=== PATIENT | female | born 1975 | race Caucasian/White ===

== ENCOUNTER 2024-03-02 16:14 | Outpatient (CLI) | payer BC ==
[2024-03-02 17:06] LABS: Hematocrit 37.9 % (34.9-44.5)
[2024-03-02 17:28] LABS: BHCG - Serum Negative (NEGATIVE); Pregs Control Background? CLEAR/WHITE (CLR/WHITE); Pregs Control Bar Appear? YES (CONTROL BAR)
== END 2024-03-02 16:15 | disposition home or self-care (01) ==
LOC: CSHLAB 16:14
PROVIDERS: ATTEND Otolaryngology Otolaryngic Allergy
DX: Z01.818 Encounter for other preprocedural examination (principal); C44.41 Basal cell carcinoma of skin of scalp and neck
CPT/HCPCS: 84703; 85014; 93005; 93010

== ENCOUNTER 2024-03-07 05:31 | Day surgery (SDC) | payer BC ==
[2024-03-02 16:32] VITALS: BMI 23.8
[2024-03-07] MEDS ORDERED: Lidocaine 1% (PF) 30 ML VIAL ONE (07:19)
[2024-03-07] MEDS ORDERED: EPINEPHrine 1 MG/ML VIAL ONE (07:19)
[2024-03-07] MEDS ORDERED: CEFAZOLIN 2 GM VIAL ONE (07:19)
[2024-03-07] MEDS ORDERED: Rocuronium Bromide 10 MG/ML (10ML VIAL) ONE (07:29)
[2024-03-07] MEDS ORDERED: PROPOFOL 20 ML ONE (07:29)
[2024-03-07] MEDS ORDERED: Ondansetron PF 4 MG/2 ML Vial ONE (07:29)
[2024-03-07] MEDS ORDERED: fentaNYL 50 mcg/mL 1 mL Vial ONE ×4 (07:29→11:24)
[2024-03-07] MEDS ORDERED: Dexamethasone 20 MG/5 ML VIAL ONE (07:29)
[2024-03-07] MEDS ORDERED: Midazolam HCl 2 mg/2 ml Vial ONE (07:30)
[2024-03-07] MEDS ORDERED: Glycopyrrolate 0.2 MG/ML 5 ML SYRINGE ONE (07:48)
[2024-03-07] MEDS ORDERED: ePHEDrine Sulfate 50 MG/10 ML VIAL ONE (07:48)
[2024-03-07] MEDS ORDERED: Bupivacaine 0.25% HCL 30 ML VIAL ONE (10:21)
== END 2024-03-07 12:25 | disposition home or self-care (01) ==
LOC: CSHSDC 05:31
PROVIDERS: ATTEND Otolaryngology Otolaryngic Allergy
PROC: 0HB0XZZ Excision of Scalp Skin, External Approach (ICD-10-PCS; principal; 2024-03-07)
PROC: 0HR0X73 Replacement of Scalp Skin with Autologous Tissue Substitute, Full Thickness, External Approach (ICD-10-PCS; principal; 2024-03-07)
DX: C44.41 Basal cell carcinoma of skin of scalp and neck (principal); I10 Essential (primary) hypertension; E03.9 Hypothyroidism, unspecified; Z88.2 Allergy status to sulfonamides; Z79.890 Hormone replacement therapy; Z79.899 Other long term (current) drug therapy
CPT/HCPCS: 88305; 88331; J0171; J0665; J1100; J2250; J2405; J2704; J3010